=== PATIENT | male | born 1970 | race Two or more races ===

== ENCOUNTER 2021-07-19 02:09 | Emergency (ER) | payer OTHER ==
[~2021-07-19] VITALS: Ht 177.8 cm; Wt 77.1 kg
[2021-07-19] MEDS ORDERED: ULTRAM50 MG (02:19)
[2021-07-19] MEDS ORDERED: KETO10TA2 PO (08:26)
[2021-07-19] MEDS ORDERED: TAMS0.4C PO (08:26)
== END 2021-07-19 08:41 ==
LOC: ER 02:09
DX: R10.31 Right lower quadrant pain (principal); R11.0 Nausea